=== PATIENT | female | born 1970 | race Caucasian/White ===

== ENCOUNTER 2021-07-26 16:30 | Outpatient (CLI) | payer BC, SELFPAY ==
[2021-07-26 16:53] LABS: CPK Total, Creatine Kinase 59 U/L (26-192)
== END 2021-07-26 23:59 | disposition home or self-care (01) ==
PROVIDERS: Referring Provider Nurse Practitioner; Visit Provider Nurse Practitioner
DX: M79.651 Pain in right thigh (principal); M79.652 Pain in left thigh; R53.1 Weakness; R53.83 Other fatigue
CPT/HCPCS: 82550